=== PATIENT | male | born 1965 | race Caucasian/White ===

== ENCOUNTER → 2018-03-04 08:41 | Outpatient (CLI) | payer BC, SELFPAY ==
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
== END ==
PROVIDERS: PCP Family Medicine; Visit Provider Family Medicine
DX: R42 Dizziness and giddiness (principal)
CPT/HCPCS: 93880

== ENCOUNTER → 2018-07-06 11:06 | Outpatient (CLI) | payer BC, SELFPAY | PROVIDERS: Visit Provider Nurse Practitioner Family | DX: Z02.4 Encounter for examination for driving license (principal) ==

== ENCOUNTER → 2019-08-11 13:26 | Outpatient (CLI) | payer SELFPAY ==
[2019-08-11 15:32] LABS: Apearance,Urine Clear (Clear); Bilirubin,Urine Negative (Negative); Blood, Urine Negative (Negative); Color,Urine Yellow (Yellow); Glucose,Urine (UA) Negative (Negative); Ketones,Urine Negative (Negative); Protein,Urine Negative (Negative); UTC Leukocyte Esterase,Urine Negative (Negative); UTC Nitrate,Urine Negative (Negative); Urobilinogen,Urine 1 EU/dl (0.2)
== END ==
PROVIDERS: PCP Physician Assistant; Visit Provider Nurse Practitioner Family
DX: Z02.4 Encounter for examination for driving license (principal)
CPT/HCPCS: 81003

== ENCOUNTER 2020-12-01 20:02 | Emergency (ER) | payer BC, SELFPAY ==
--- NOTE | 2020-12-01 20:08 | PC.NURSE ---
MD at bedside trauma alert cancelled
--- NOTE | 2020-12-01 20:08 | PC.NURSE ---
at bedside FSBS 117
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
[2020-12-01 20:11] VITALS: BP 159/68; PULSE 79; RESP 16; TEMP 36.7; O2SAT 97
[2020-12-01 20:33] VITALS: BMI 28.1
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
--- NOTE | 2020-12-01 20:34 | PC.NURSE ---
2001 Trauma Alert paged.
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
[2020-12-01 21:35] VITALS: BP 160/99; PULSE 76; RESP 16; TEMP 36.7; O2SAT 96
[2020-12-02 07:31] LABS: POC Glucose,Bedside 117 (70-110)
== END 2020-12-01 21:47 | disposition home or self-care (01) ==
PROVIDERS: Emergency Provider Emergency Medicine; PCP Physician Assistant
DX: S01.01XA Laceration without foreign body of scalp, initial encounter (principal); V86.55XA Driver of 3- or 4- wheeled all-terrain vehicle (ATV) injured in nontraffic accident, initial encounter; Y92.018 Other place in single-family (private) house as the place of occurrence of the external cause
CPT/HCPCS: 12002; 70450; 71045; 72125; 72170; 73030; 82962; 99281

== ENCOUNTER → 2020-12-06 07:45 | Outpatient (CLI) | payer BC, SELFPAY ==
--- NOTE | 2020-12-06 07:48 | MR_ITS ---
PROCEDURE: MR SHOULDER RT WO CON CLINICAL INDICATION: CLOSED FRACTURE OF RIGHT SCAPULA COMPARISON: CR XR SHOULDER RT MIN 2V from 12/01/2020 TECHNIQUE: Routine multiplanar multi echo sequences are performed without gadolinium enhancement. FINDINGS: There is complete tear of the supraspinatus and infraspinatus muscles with retraction of the musculotendinous fibers. There is increased T2 signal involving the distal aspect of the subscapularis tendon suggesting tendinopathy/tendinosis versus partial tear. The teres minor tendon appears intact. Moderate amount fluid is present within the bicipital tendon sheath. The bicipital tendon does appear in place. No obvious labral tear. There is a high-riding humeral head with subacromial stenosis. There was a question of a scapular fracture on a previous radiograph. This study was performed of the glenohumeral joint and was not emphasized on the scapula. No obvious fracture is identified however, if there is high degree of scapular fracture then CT could be performed for more thorough evaluation. Increased T2 signal involves the soft tissues of the superior aspect of the shoulder near the AC joint. Small amount fluid is present in the AC joint region. There is some minimal fluid deep to the deltoid area. There is a small shoulder joint effusion. IMPRESSION: 1. Complete tear of the supraspinatus and infraspinatus muscles with retraction of the musculotendinous fibers. 2. No obvious scapular fracture evident however, of the study is not tailored to the scapula. If there remains pain and tenderness then would strongly recommend CT of the scapula for further evaluation. 3. Subcutaneous edema about the shoulder within the soft tissues consistent with posttraumatic changes Moderate amount of fluid within the bicipital tendon sheath suggesting tenosynovitis Dictated by: Ulises Doshi MD 12/06/2020 13:25 Ulises Doshi MD in [place] 12/06/2020 13:25
== END ==
PROVIDERS: PCP Physician Assistant; Visit Provider Physician Assistant
DX: S42.101A Fracture of unspecified part of scapula, right shoulder, initial encounter for closed fracture (principal)
CPT/HCPCS: 73221